=== PATIENT | male | born 1980 | race Caucasian/White ===

== ENCOUNTER → 2020-03-25 | Outpatient (CLI) | payer BC ==
--- NOTE | 2020-03-25 16:16 | Diagnostic Imaging Report ---
INDICATION: Abdominal pain. PROCEDURE: Ultrasound abdomen complete. TECHNIQUE: Multiple real-time grayscale images were obtained of the abdomen in various projections. FINDINGS: Liver is normal in size at 17 cm. No discrete liver mass is identified. Gallbladder is without stone or sludge. No wall thickening or biliary ductal dilatation is identified. Pancreas unremarkable. Spleen is normal in size at 9.4 cm. Aorta is non-aneurysmal. IVC is patent. Right and left kidneys are without calculi or hydronephrosis. There is no ascites. IMPRESSION: Unremarkable abdominal ultrasound. Dictated by: Dictated on workstation # [id number]
== END ==
LOC: RAD 08:15
PROVIDERS: ATTEND Family Medicine
DX: R10.9 Unspecified abdominal pain (principal)
CPT/HCPCS: 76700

== ENCOUNTER → 2021-09-01 | Outpatient (CLI) | payer BC ==
[2021-09-01 10:57] LABS: BASOPHILS % (AUTO) 1 % (0-10); EOSINOPHILS # (AUTO) 0.1 10^3/uL (0.0-0.3); EOSINOPHILS % (AUTO) 2 % (0-10); HEMATOCRIT 43 % (40-54); HEMOGLOBIN 14.1 g/dL (13.3-17.7); LYMPHOCYTES # (AUTO) 1.9 10^3/uL (1.0-4.0); LYMPHOCYTES % (AUTO) 52 % (12-44); MEAN CORPUSCULAR HEMOGLOBIN 30 pg (25-34); MEAN CORPUSCULAR HGB CONC 33 g/dL (32-36); MEAN CORPUSCULAR VOLUME 91 fL (80-99); MEAN PLATELET VOLUME 10.2 fL (9.0-12.2); MONOCYTES # (AUTO) 0.3 10^3/uL (0.0-1.0); MONOCYTES % (AUTO) 9 % (0-12); NEUTROPHILS # (AUTO) 1.3 10^3/uL (1.8-7.8); NEUTROPHILS % (AUTO) 36 % (42-75); PLATELET COUNT 234 10^3/uL (130-400); WHITE BLOOD COUNT 3.6 10^3/uL (4.3-11.0)
[2021-09-01 11:06] LABS: CHLORIDE 105 MMOL/L (98-107); POTASSIUM 4.8 MMOL/L (3.6-5.0); SODIUM 141 MMOL/L (135-145)
[2021-09-01 11:07] LABS: ALBUMIN 4.5 GM/DL (3.2-4.5)
[2021-09-01 11:08] LABS: CALCIUM 9.7 MG/DL (8.5-10.1)
[2021-09-01 11:09] LABS: GLUCOSE 102 MG/DL (70-105); TOTAL PROTEIN 7.3 GM/DL (6.4-8.2); TRIGLYCERIDES 54 MG/DL (<150); VLDL CHOLESTEROL 11 MG/DL (5-40)
[2021-09-01 11:10] LABS: CARBON DIOXIDE 26 MMOL/L (21-32)
[2021-09-01 11:11] LABS: BILIRUBIN,TOTAL 0.5 MG/DL (0.1-1.0)
[2021-09-01 11:13] LABS: ALKALINE PHOSPHATASE 59 U/L (40-136); CREATININE SERUM 1.02 MG/DL (0.60-1.30); GFR ESTIMATED 96
[2021-09-01 11:14] LABS: BUN/CREATININE RATIO 19; CHOLESTEROL 224 MG/DL (< 200)
[2021-09-01 11:15] LABS: HDL CHOLESTEROL 60 MG/DL (40-60)
[2021-09-01 11:16] LABS: ALANINE AMINOTRANSFERASE 24 U/L (0-55)
== END ==
LOC: CARD 10:30
PROVIDERS: ATTEND Family Medicine
DX: Z00.01 Encounter for general adult medical examination with abnormal findings (principal); R07.89 Other chest pain
CPT/HCPCS: 36415; 80053; 80061; 84484; 85025

== ENCOUNTER → 2022-05-09 | Outpatient (CLI) | payer BC | LOC: CARD 11:04 | PROVIDERS: ATTEND Family Medicine | DX: R07.9 Chest pain, unspecified (principal) | CPT/HCPCS: 93005 ==

== ENCOUNTER → 2022-05-25 | Outpatient (CLI) | payer BC ==
--- NOTE | 2022-05-25 11:40 | Diagnostic Imaging Report ---
PROCEDURE: US Gallbladder. TECHNIQUE: Multiple real-time grayscale images were obtained over the right upper quadrant in various projections. INDICATION: Dyspepsia, gastroesophageal reflux. Chest pain. COMPARISON: None available. FINDINGS: The liver is normal in size and echogenicity. There is no focal hepatic mass. The main portal vein is patent with antegrade flow. The gallbladder is distended without gallstones, wall thickening, or pericholecystic fluid. The common bile duct measures up to 0.4 cm in diameter. No intrahepatic biliary dilation. The visualized portions of the pancreas are normal. Portions of the head and tail are obscured by overlying bowel gas. The right kidney is normal in size. No hydronephrosis, shadowing calculi, or suspicious mass lesion. IMPRESSION: Normal right upper quadrant ultrasound. Dictated by: Dictated on workstation # [id number]
== END ==
PROVIDERS: ATTEND Nurse Practitioner Family
DX: K21.9 Gastro-esophageal reflux disease without esophagitis (principal)
CPT/HCPCS: 76705

== ENCOUNTER → 2022-07-17 | Outpatient (CLI) | payer BC ==
[~2022-07-17] VITALS: Ht 177 cm; Wt 79.0 kg
[~2022-07-17] MED LIST: CATHETER FLUSH 10 ML SYR IVP PRN
--- NOTE | 2022-07-17 13:14 | STRESS TEST ---
DATE OF SERVICE: 07/17/2022 RESTING AND POST EXERCISE TECHNETIUM-99M TETROFOSMIN SPECT CT IMAGING ORDERING PHYSICIAN: María Elena Ocampo APRN. PRIMARY PHYSICIAN: Dr. Barry Kaur CLINICAL DIAGNOSIS: Chest discomfort. Baseline images were carried out after injection of 10.96 mCi technetium-99m tetrofosmin. This was followed by exercise on a treadmill. Gonsalo protocol was employed. The patient exercised for a total of 13 minutes and 46 seconds. He attained 96% of maximum predicted heart rate and 14.3 METs of workload. After he had attained more than 85% of maximum predicted heart rate, 29.6 mCi of technetium-99m Tetrofosmin were injected and the exercise was continued for another minute. No significant arrhythmia was seen. There does not appear to be significant ST-T segment deviation with exercise. The patient tolerated the procedure well. Test was stopped on account of fatigue. Review of images at rest and following stress does not indicate any distinct perfusion defects consistent with myocardial ischemia or infarction. Gated images show normal global left ventricular systolic function with normal regional wall motion. Left ventricular ejection fraction is calculated to be 53%. CONCLUSIONS: 1. No evidence of any significant myocardial ischemia or infarction on this study. 2. Normal regional wall motion. 3. Normal global left ventricular systolic function with a calculated ejection fraction of 53%. Job ID: [id number] DocumentID: [id number] Dictated Date: 07/17/2022 12:30:46 Underwriting Operations Manager Date: 07/17/2022 13:12:00 Dictated By: BERRY GARCIA MD; LANEY; FACP; FACC;
== END ==
LOC: CARD 08:30
PROVIDERS: ATTEND Nurse Practitioner Family
DX: R07.89 Other chest pain (principal)
CPT/HCPCS: 78452; 93017; A9502